=== PATIENT | female | born 1995 | race African-American/Black ===

== ENCOUNTER 2018-10-08 19:35 | Emergency (ER) | payer OTHER ==
[~2018-10-08] VITALS: Ht 157.5 cm; Wt 55.3 kg
[2018-10-08 21:06] LABS: ABSOLUTE NEUTROPHILS 5.5 thou/uL (1.4-8.2); BASOPHILS 0.3 % (0.0-2.0); HEMATOCRIT 37.9 % (37.0-47.0); HEMOGLOBIN 12.8 gm/dL (12.0-15.0); MCH 29.5 pg (26.0-34.0); MCHC 33.7 g/dL (28.0-37.0); MCV 87.6 fL (80.0-100.0); MONOCYTES 6.8 % (1.0-8.0); PLATELET COUNT 303 thou/uL (150-400); POLYS 69.9 % (36.0-66.0); RBC 4.33 mil/uL (4.20-5.00); RDW 13.7 % (10.5-14.5); WBC 7.9 thou/uL (4.0-11.0)
[2018-10-08 21:18] LABS: CALCIUM 9.7 mg/dL (8.5-10.1); CREATININE 0.7 mg/dL (0.6-1.0); POTASSIUM 3.5 mmol/L (3.5-5.1)
[2018-10-08 21:25] LABS: ALBUMIN 4.1 g/dL (3.4-5.0); TOTAL BILIRUBIN 0.5 mg/dL (<0.1-1.0); TOTAL PROTEIN 7.8 g/dL (6.4-8.2)
[2018-10-08] MEDS ORDERED: ULTRAM 50MG TAB50 MG PO (21:31)
[2018-10-08 22:09] VITALS: BP 117/82
== END 2018-10-08 22:10 | disposition home or self-care (01) ==
LOC: ER 19:35
PROVIDERS: Physician Assistant
DX: S16.1XXA Strain of muscle, fascia and tendon at neck level, initial encounter (principal); R10.31 Right lower quadrant pain; R51 Headache; Z88.1 Allergy status to other antibiotic agents; V89.2XXA Person injured in unspecified motor-vehicle accident, traffic, initial encounter; Y93.I9 Activity, other involving external motion; Y92.410 Unspecified street and highway as the place of occurrence of the external cause; Y99.8 Other external cause status